=== PATIENT | male | born 1955 | race Caucasian/White ===

== ENCOUNTER 2017-03-23 12:11 | Emergency (ER) | payer OTHER ==
[~2017-03-23] VITALS: Ht 170.1 cm; Wt 74.8 kg
[2017-03-23] MEDS ORDERED: GLAUCOMA EYE DROPS (12:17)
[2017-03-23] MEDS ORDERED: SIMVASTATIN5 MG PO (12:17)
[2017-03-23] MEDS ORDERED: LISINOPRIL10 M1 PO (12:17)
[2017-03-23] MEDS ORDERED: CYCLOBENZAPRINE10 MG PO (13:37)
== END 2017-03-23 13:41 | disposition home or self-care (01) ==
LOC: ED 12:11
DX: M25.511 Pain in right shoulder (principal); F17.200 Nicotine dependence, unspecified, uncomplicated; F10.10 Alcohol abuse, uncomplicated; Z79.899 Other long term (current) drug therapy

== ENCOUNTER 2019-02-05 16:30 | Inpatient (IN) | payer OTHER ==
[~2019-02-05] VITALS: Ht 170.2 cm; Wt 77.1 kg
[~2019-02-05 16:30] MED LIST: CYCLOBENZAPRINE10 MG PO; GLAUCOMA EYE DROPS; LISINOPRIL10 M1 PO; SIMVASTATIN5 MG PO
[2019-02-05 16:31] VITALS: BP 157/89
[2019-02-05 16:41] VITALS: BP 160/88
[2019-02-05 16:52] LABS: BASO % 0.2 % (0.0-1.0); EOS % 0.7 % (1.0-4.0); HEMATOCRIT 50.5 % (42.0-52.0); HEMOGLOBIN 17.2 g/dl (14.0-18.0); LYMPH # 1.9 10*3/uL (1.3-4.4); LYMPH % 34.3 % (27.0-41.0); MEAN CELL VOLUME 93.5 fl (80.0-94.0); MEAN CORPUSCULAR HGB 31.9 pg (27.0-31.0); MEAN CORPUSCULAR HGB CONC 34.1 g/dl (33.0-37.0); MEAN PLATELET VOLUME 8.7 fl (9.6-12.3); MONO # 0.6 10*3/uL (0.1-1.0); MONO % 9.8 % (3.0-9.0); NEUT # 3.1 10*3/uL (2.3-7.9); NEUT % 54.5 % (47.0-73.0); PLATELET COUNT AUTOMATED 273 10*3/uL (130-400); RED CELL DISTRI WIDTH 12.9 % (0-14.5); WHITE BLOOD COUNT 5.6 10*3/uL (4.8-10.8)
[2019-02-05 17:02] LABS: ACT PARTIAL THROMBO TIME 27.6 SECONDS (20.0-32.1)
[2019-02-05 17:08] LABS: BUN 19 mg/dl (7-24); CHLORIDE 105 mmol/L (98-107); POTASSIUM 3.4 mmol/L (3.5-5.1); SODIUM 138 mmol/L (136-145); TROPONIN I < 0.015 ng/ml (<0.045)
[2019-02-05 17:22] VITALS: BP 168/82
[2019-02-05] MEDS ORDERED: MEDROL DOSEPAK4 MG PO (17:23)
[2019-02-05] MEDS ORDERED: PEPCID20 MG PO (17:23)
[2019-02-05] MEDS ORDERED: EPIPEN 2-P0.3 MG/0.3 IJ (17:23)
[2019-02-05] MEDS ORDERED: CLARITIN10 MG PO (17:23)
--- NOTE | 2019-02-05 17:46 | NUR ---
RASH IS GREATLY IMPROVED/GONE. ERYTHEMATOUS COLOR IS GONE. PT IS FEELING MUCH BETTER. NO RESPIRATORY DISTRESS IS NOTED. OMKAR VILA
[2019-02-05 18:20] VITALS: BP 138/76
[2019-02-05 20:00] VITALS: BP 128/75
--- NOTE | 2019-02-05 20:10 | NUR ---
A 64, admitted to ICCU, under the services of EZIO Wu DO with a diagnosis of ANAPHALAXIS TO NUTS. Chief complaint is SHORTNESS OF BREATH, ITCHING. Patient arrived via stretcher from ER. Monitor applied. Initial assessment completed. Vital signs taken and recorded. EZIO WU DO notified of admission to the unit. Orders received. See assessment for past medical history, medications and allergies. Patient and/or family oriented to unit. [facility] visitation policy reviewed. Clothing/patient valuable form completed. JUAN LINARES
[2019-02-05] MEDS ORDERED: ZANTAC 7575 M1 PO (20:24)
[2019-02-05] MEDS ORDERED: LISINOPRIL10 M1 PO (20:26)
[2019-02-05] MEDS ORDERED: VENT7GM INH (20:27)
--- NOTE | 2019-02-05 22:22 | NUR ---
RESTING EASILY, OFFERS NO COMPLAINTS.
--- NOTE | 2019-02-05 22:58 | NUR ---
ASSISTED TO POSITION OF COMFORT. NO RETURN OF SYMPTOMS.
[2019-02-05 23:04] VITALS: BP 116/61
[2019-02-06 04:40] VITALS: BP 134/60
--- NOTE | 2019-02-06 04:44 | NUR ---
AWAKENED BY LAB. ASSESSMENT DONE. PT HAS BEEN DOZING LIGHTLY. NO HIVES, NO ITCHING, NO DIFFICULTY SWALLOWING.
[2019-02-06 04:53] LABS: HEMATOCRIT 42.7 % (42.0-52.0); HEMOGLOBIN 14.4 g/dl (14.0-18.0); MEAN CELL VOLUME 94.7 fl (80.0-94.0); MEAN CORPUSCULAR HGB 31.9 pg (27.0-31.0); MEAN CORPUSCULAR HGB CONC 33.7 g/dl (33.0-37.0); MEAN PLATELET VOLUME 9.3 fl (9.6-12.3); PLATELET COUNT AUTOMATED 236 10*3/uL (130-400); RED BLOOD COUNT 4.51 10*6/uL (4.50-5.90); RED CELL DISTRI WIDTH 12.6 % (0-14.5); WHITE BLOOD COUNT 5.8 10*3/uL (4.8-10.8)
[2019-02-06 05:10] LABS: BUN 17 mg/dl (7-24); CHLORIDE 109 mmol/L (98-107); CHOLESTEROL 186 mg/dL (<200); CREATININE 0.75 mg/dL (0.70-1.30); HDL CHOLESTEROL 62 mg/dl (40-60); LDL CHOLESTEROL 108 mg/dL (9-159); PHOSPHOROUS 2.8 mg/dL (2.5-4.9); POTASSIUM 4.1 mmol/L (3.5-5.1); SODIUM 140 mmol/L (136-145); TRIGLYCERIDES 78 mg/dl (<150); VLDL CHOLESTEROL 16 mg/dL (6-40)
[2019-02-06 05:16] LABS: ATYPICAL LYMPHS 1 % (0-0); THYROID STIM HORMONE (HS) 0.648 uIU/ml (0.358-4.75); TOTAL CELLS COUNTED 100 #CELLS
[2019-02-06 05:17] LABS: BURR CELLS FEW; PLATELET SUFFICIENCY NORMAL (NORMAL)
[2019-02-06 08:00] VITALS: BP 126/66
--- NOTE | 2019-02-06 08:40 | NUR ---
DR. RESTREPO IN TO EVALUATE AND SPEAK WITH PATIENT. PATIENT CONDITION REVIEWED. DISCHARGE ORDERS RECEIVED.
[2019-02-06] MEDS ORDERED: PREDNISONE10 MG PO (08:43)
[2019-02-06] MEDS ORDERED: BENADRYL25 M2 PO (08:43)
--- NOTE | 2019-02-06 09:00 | NUR ---
Freight Loading Supervisor in to talk to patient. Patient states lives at home with family. There are few steps in the home. Physician: Pharmacy: Home health services: none Patient's level of ADLs: INDEPENDENT Patient has working utilities: all working DME: none Follow-up physician's appointment after d/c: will be made by hospitalist nurse director upon discharge Does patient want to access PORTAL?: no Discharge plan discussed with patient, he states he lives at home, is independent in adls and ambulation, stated he will return home when medically stable and denies any home needs. KRISTI PATEL
--- NOTE | 2019-02-06 09:18 | NUR ---
Discharge instructions reviewed with patient/family. Patient receptive and verbalizes understanding. Follow-up care arranged WITH PCP IN 1 WEEK. Written instructions given TO PATIENT. HEPLOCK REMOVED. PATIENT AMBULATED OFF THE FLOOR WITH FAMILY MEMBER. HARISH MORSE
[2019-02-06 14:04] LABS: VITAMIN D, 25-HYDROXY 44.7 ng/mL (30-100)
== END 2019-02-06 09:18 | disposition home or self-care (01) | DRG 916 ==
LOC: ED 16:30 → EDHOLD 19:16 → ICCU 19:48
PROVIDERS: Emergency Medicine; Internal Medicine; ADMIT Family Medicine
DX: T78.05XA Anaphylactic reaction due to tree nuts and seeds, initial encounter (principal); R65.10 Systemic inflammatory response syndrome (SIRS) of non-infectious origin without acute organ dysfunction; E87.6 Hypokalemia; F17.210 Nicotine dependence, cigarettes, uncomplicated; R73.9 Hyperglycemia, unspecified; E66.3 Overweight; G89.29 Other chronic pain; J44.9 Chronic obstructive pulmonary disease, unspecified; K21.9 Gastro-esophageal reflux disease without esophagitis; I10 Essential (primary) hypertension; E78.5 Hyperlipidemia, unspecified; Z71.6 Tobacco abuse counseling; Z93.3 Colostomy status; Z91.018 Allergy to other foods; Z85.038 Personal history of other malignant neoplasm of large intestine; Z82.5 Family history of asthma and other chronic lower respiratory diseases; Z80.8 Family history of malignant neoplasm of other organs or systems; Z82.49 Family history of ischemic heart disease and other diseases of the circulatory system; Z91.09 Other allergy status, other than to drugs and biological substances; Z79.899 Other long term (current) drug therapy; Z68.26 Body mass index [BMI] 26.0-26.9, adult

== ENCOUNTER 2020-07-10 06:51 | Emergency (ER) | payer OTHER ==
[~2020-07-10] VITALS: Ht 170.1 cm; Wt 77.1 kg
[~2020-07-10 06:51] MED LIST changes: +BENADRYL25 M2 PO; +CLARITIN10 MG PO; +EPIPEN 2-P0.3 MG/0.3 IJ; +MEDROL DOSEPAK4 MG PO; +PEPCID20 MG PO; +PREDNISONE10 MG PO; +VENT7GM INH; +ZANTAC 7575 M1 PO
[2020-07-10 07:44] LABS: BILIRUBIN Negative (Negative); BLOOD 3+ (Negative); CLARITY Clear (Clear); COLOR Yellow (Yellow); GLUCOSE Negative (Negative); KETONE Negative (Negative); LEUKO ESTERASE Negative (Negative); NITRITE Negative (Negative); SPECIFIC GRAVITY 1.015 (1.001-1.030); UROBILINOGEN 0.2 E.U./dl (0.0-1.0)
[2020-07-10 07:51] LABS: BACTERIA TRACE; EPITHELIAL CELLS 0-2; RBC 21-30 rbc/hpf (0-2); WBC 0-2 wbc/hpf (0-5)
[2020-07-10] MEDS ORDERED: MACROBID100 M1 PO (08:07)
== END 2020-07-10 08:15 | disposition home or self-care (01) ==
LOC: ED 06:51
PROVIDERS: Emergency Medicine
DX: R31.9 Hematuria, unspecified (principal); Z91.018 Allergy to other foods; Z79.899 Other long term (current) drug therapy; Z98.890 Other specified postprocedural states

== ENCOUNTER 2020-09-12 10:34 | Emergency (ER) | payer OTHER ==
[~2020-09-12] VITALS: Wt 77.1 kg
[~2020-09-12 10:34] MED LIST changes: +MACROBID100 M1 PO
[2020-09-12] MEDS ORDERED: MEDROL DOSEPAK4 MG PO (12:40)
[2020-09-12] MEDS ORDERED: PEPCID20 MG PO (12:40)
[2020-09-12] MEDS ORDERED: CLARITIN10 MG PO (12:40)
[2020-09-12] MEDS ORDERED: SEPTDS PO (12:40)
== END 2020-09-12 13:11 | disposition home or self-care (01) ==
LOC: ED 10:34
DX: R22.0 Localized swelling, mass and lump, head (principal); T78.3XXA Angioneurotic edema, initial encounter; I10 Essential (primary) hypertension; E78.5 Hyperlipidemia, unspecified; F17.200 Nicotine dependence, unspecified, uncomplicated; Z90.49 Acquired absence of other specified parts of digestive tract; Z98.890 Other specified postprocedural states; Z79.899 Other long term (current) drug therapy; Z88.1 Allergy status to other antibiotic agents; Y92.89 Other specified places as the place of occurrence of the external cause

== ENCOUNTER 2020-09-21 15:09 | Emergency (ER) | payer OTHER ==
[~2020-09-21] VITALS: Ht 170.1 cm; Wt 74.8 kg
[~2020-09-21 15:09] MED LIST changes: +SEPTDS PO
[2020-09-21 15:59] LABS: BASO % 0.5 % (0.0-1.0); EOS # 0.1 10*3/uL (0.0-0.4); EOS % 1.1 % (1.0-4.0); HEMATOCRIT 38.7 % (42.0-52.0); LYMPH # 1.8 10*3/uL (1.3-4.4); LYMPH % 21.7 % (27.0-41.0); MEAN CELL VOLUME 88.6 fl (80.0-94.0); MEAN CORPUSCULAR HGB 28.4 pg (27.0-31.0); MEAN PLATELET VOLUME 8.7 fl (9.6-12.3); MONO % 11.6 % (3.0-9.0); NEUT # 5.3 10*3/uL (2.3-7.9); NEUT % 64.5 % (47.0-73.0); PLATELET COUNT AUTOMATED 351 10*3/uL (130-400); RED BLOOD COUNT 4.37 10*6/uL (4.50-5.90); RED CELL DISTRI WIDTH 13.6 % (0-14.5); WHITE BLOOD COUNT 8.3 10*3/uL (4.8-10.8)
[2020-09-21 16:10] LABS: ACT PARTIAL THROMBO TIME 27.3 SECONDS (20.0-32.1)
[2020-09-21 16:15] LABS: ALBUMIN 3.8 gm/dl (3.1-4.5); ALKALINE PHOSPHATASE 66 U/L (45-117); BUN 23 mg/dl (7-24); CHLORIDE 104 mmol/L (98-107); CREATININE 1.06 mg/dL (0.70-1.30); POTASSIUM 3.9 mmol/L (3.5-5.1); SGOT/AST 17 IU/L (3-35); SGPT/ALT 30 U/L (12-78); SODIUM 131 mmol/L (136-145); TOTAL PROTEIN 7.6 gm/dL (6.4-8.2)
== END 2020-09-21 16:42 | disposition home or self-care (01) ==
LOC: ED 15:09
PROVIDERS: Emergency Medicine
DX: R31.9 Hematuria, unspecified (principal); F17.200 Nicotine dependence, unspecified, uncomplicated; Z91.018 Allergy to other foods; Z88.1 Allergy status to other antibiotic agents; Z91.048 Other nonmedicinal substance allergy status; Z88.8 Allergy status to other drugs, medicaments and biological substances; Z79.2 Long term (current) use of antibiotics; Z79.899 Other long term (current) drug therapy; Z98.890 Other specified postprocedural states; Z93.6 Other artificial openings of urinary tract status

== ENCOUNTER 2020-09-28 18:25 | Emergency (ER) | payer OTHER ==
[~2020-09-28] VITALS: Wt 77.1 kg
[2020-09-28 19:25] LABS: BILIRUBIN Negative (Negative); BLOOD 1+ (Negative); CLARITY Clear (Clear); COLOR Yellow (Yellow); GLUCOSE Negative (Negative); KETONE Trace (Negative); LEUKO ESTERASE 1+ (Negative); NITRITE Negative (Negative); PH 6.5 (4.5-8.0); SPECIFIC GRAVITY 1.025 (1.001-1.030)
[2020-09-28 19:42] LABS: BACTERIA 1+; WBC 31-40 wbc/hpf (0-5)
[2020-09-28] MEDS ORDERED: PYRIDIUM200 M1 PO ×2 (20:14→20:42)
== END 2020-09-28 21:01 | disposition home or self-care (01) ==
LOC: ED 18:25
PROVIDERS: Physician Assistant
DX: N39.0 Urinary tract infection, site not specified (principal); F17.200 Nicotine dependence, unspecified, uncomplicated; Z91.018 Allergy to other foods; Z88.1 Allergy status to other antibiotic agents; Z91.048 Other nonmedicinal substance allergy status; Z79.2 Long term (current) use of antibiotics; Z79.899 Other long term (current) drug therapy; Z98.890 Other specified postprocedural states; Z90.49 Acquired absence of other specified parts of digestive tract

== ENCOUNTER 2020-11-04 14:42 | Emergency (ER) | payer OTHER ==
[~2020-11-04] VITALS: Ht 170.1 cm; Wt 72.6 kg
[~2020-11-04 14:42] MED LIST changes: +PYRIDIUM200 M1 PO
[2020-11-04 15:57] LABS: BILIRUBIN Negative (Negative); BLOOD 2+ (Negative); CLARITY Turbid (Clear); COLOR Yellow (Yellow); GLUCOSE Negative (Negative); KETONE Trace (Negative); LEUKO ESTERASE 3+ (Negative); NITRITE Positive (Negative)
[2020-11-04 16:20] LABS: BACTERIA 3+; RBC 21-30 rbc/hpf (0-2); WBC TNTC wbc/hpf (0-5)
[2020-11-04] MEDS ORDERED: CIPRO500 MG PO (16:40)
== END 2020-11-04 16:52 | disposition home or self-care (01) ==
LOC: ED 14:42
PROVIDERS: Emergency Medicine
DX: N39.0 Urinary tract infection, site not specified (principal); Z88.1 Allergy status to other antibiotic agents; Z79.899 Other long term (current) drug therapy

== ENCOUNTER 2021-04-08 06:38 | Emergency (ER) | payer OTHER ==
[2021-04-08] VITALS (11 sets, daily range): BP systolic 85–104; BP diastolic 50–59
[~2021-04-08] VITALS: Ht 165.1 cm; Wt 54.4 kg
[~2021-04-08 06:38] MED LIST changes: +CIPRO500 MG PO
[2021-04-08] MEDS ORDERED: EPINEPHRIN IJ (08:40)
[2021-04-08] MEDS ORDERED: CETIRIZINE10 MG PO (08:40)
[2021-04-08] MEDS ORDERED: FLONASE ALLERG9.9 ML NAS (08:41)
[2021-04-08] MEDS ORDERED: IRON325 M1 PO (08:41)
[2021-04-08] MEDS ORDERED: ALLERGY EYE DRO10 M1 OP (08:42)
[2021-04-08] MEDS ORDERED: SUNMARK OMEPRAZ20 MG PO (08:45)
[2021-04-08] MEDS ORDERED: XALATAN 2.5 ML2.5 ML OU (08:45)
[2021-04-08] MEDS ORDERED: MIRALAX119 GM PO (08:46)
[2021-04-08] MEDS ORDERED: OXYBUTYNIN5 MG PO (08:47)
[2021-04-08 10:01] LABS: BASO % 0.3 % (0.0-1.0); EOS % 0.2 % (1.0-4.0); HEMATOCRIT 31.8 % (42.0-52.0); LYMPH # 0.8 10*3/uL (1.3-4.4); LYMPH % 6.2 % (27.0-41.0); MEAN CELL VOLUME 76.3 fl (80.0-94.0); MEAN CORPUSCULAR HGB 23.3 pg (27.0-31.0); MEAN CORPUSCULAR HGB CONC 30.5 g/dl (33.0-37.0); MEAN PLATELET VOLUME 8.6 fl (9.6-12.3); MONO # 0.8 10*3/uL (0.1-1.0); MONO % 6.4 % (3.0-9.0); NEUT # 11.1 10*3/uL (2.3-7.9); NEUT % 85.9 % (47.0-73.0); PLATELET COUNT AUTOMATED 552 10*3/uL (130-400); RED BLOOD COUNT 4.17 10*6/uL (4.50-5.90); RED CELL DISTRI WIDTH 21.2 % (0-14.5); WHITE BLOOD COUNT 12.9 10*3/uL (4.8-10.8)
[2021-04-08 10:17] LABS: ACT PARTIAL THROMBO TIME 32.7 SECONDS (20.0-32.1); INTERNATIONAL NORM RATIO 1.2 (2.0-3.5)
[2021-04-08 10:22] LABS: ALKALINE PHOSPHATASE 68 U/L (45-117); BUN 25 mg/dl (7-24); CHLORIDE 97 mmol/L (98-107); CREATININE 1.17 mg/dL (0.70-1.30); LIPASE 60 U/L (73-393); POTASSIUM 3.8 mmol/L (3.5-5.1); SGOT/AST 13 IU/L (3-35); SGPT/ALT 17 U/L (12-78); SODIUM 130 mmol/L (136-145); TOTAL PROTEIN 7.8 gm/dL (6.4-8.2)
[2021-04-08 12:44] LABS: BILIRUBIN Negative (Negative); BLOOD 2+ (Negative); CLARITY Turbid (Clear); COLOR Yellow (Yellow); GLUCOSE Negative (Negative); KETONE Trace (Negative); LEUKO ESTERASE 2+ (Negative); NITRITE Positive (Negative); PH 5.5 (4.5-8.0); SPECIFIC GRAVITY >= 1.030 (1.001-1.030)
[2021-04-08 13:09] LABS: BACTERIA 4+; RBC 21-30 rbc/hpf (0-2); WBC TNTC wbc/hpf (0-5)
[2021-04-09 08:10] VITALS: BP 100/64
[2021-04-09] MEDS ORDERED: CIPRO500 MG PO (15:11)
[2021-04-09] MEDS ORDERED: LEVOFLOXACIN750 M2 PO (15:12)
== END 2021-04-09 15:09 | disposition home or self-care (01) ==
LOC: ED 06:38 → EDHOLD 13:24 → ED 13:24
PROVIDERS: Emergency Medicine
DX: A41.9 Sepsis, unspecified organism (principal); Z20.822 Contact with and (suspected) exposure to COVID-19; R65.20 Severe sepsis without septic shock; J18.9 Pneumonia, unspecified organism; N12 Tubulo-interstitial nephritis, not specified as acute or chronic; N39.0 Urinary tract infection, site not specified; F17.200 Nicotine dependence, unspecified, uncomplicated; Z98.890 Other specified postprocedural states; Z79.899 Other long term (current) drug therapy; Z88.1 Allergy status to other antibiotic agents; Z88.8 Allergy status to other drugs, medicaments and biological substances